=== PATIENT | female | born 1975 | race Caucasian/White ===

== ENCOUNTER 2022-08-31 17:06 | Emergency (ER) | payer OTHER, SELFPAY ==
[2022-08-31 17:09] VITALS: BP 133/70; PULSE 79; RESP 16; TEMP 37.1; O2SAT 98; BMI 27.4
[2022-08-31 17:43] LABS: Add Manual Diff / Slide Review NO; Basophils Absolute Auto 0 /uL (0-100); Basophils Percent Auto 0.3 % (0-2); Eosinophils Absolute Auto 200 /uL (0-450); Eosinophils Percent Auto 2.6 % (2-4); Hematocrit 41.2 % (36-46); Hemoglobin 13.8 g/dL (12.0-16.0); Lymphocytes Absolute Auto 1700 /uL (1100-4500); Lymphocytes Percent Auto 25.3 % (25-40); Mean Corpuscular HGB Conc 33.5 % (30-36); Mean Corpuscular Hemoglobin 29.2 PG (26-34); Mean Corpuscular Volume 87.2 fL (80-100); Monocytes Absolute Auto 500 /uL (0-900); Monocytes Percent Auto 7.9 % (3-14); Neutrophils Absolute Auto 4300 /uL (1500-7000); Neutrophils Percent Auto 63.9 % (50-75); Platelet Count 208 X10^3/uL (150-400); Red Blood Cell Count 4.73 X10^6/uL (4.0-5.2); Red Cell Distribution Width 13.2 % (11.6-14.8); White Blood Cell Count 6.7 X10^3/uL (4.5-11.0)
[2022-08-31 18:12] LABS: BUN Creatinine Ratio 17.1 (6-22); Blood Urea Nitrogen 7 mg/dL (7-17); Calcium 9.1 mg/dL (8.4-10.2); Carbon Dioxide 26 mmol/L (22-32); Chloride 101 mmol/L (98-107); Estimated Glomerular Filt Rate > 60 mL/min (>60); Glucose 100 mg/dL (70-100); HEMOLYSIS < 15 (0-50); Potassium 3.8 mmol/L (3.4-5.1); Sodium 139 mmol/L (137-145)
[2022-08-31 18:13] LABS: Alanine Aminotransferase 24 IU/L (<35); Albumin 4.3 g/dL (3.5-5.0); Albumin Globulin Ratio 1.1 (1.0-2.8); Alkaline Phosphatase 53 U/L (38-126); Aspartate Aminotransferase 29 IU/L (14-36); Bilirubin Total 0.8 mg/dL (0.2-1.3); Globulin 3.9 g/dL (1.7-4.1); Lipase 48 U/L (23-300); Total Protein 8.2 g/dL (6.3-8.2)
--- NOTE | 2022-08-31 18:34 | ED.GENADULT ---
HPI - General Adult General Chief complaint: Abdominal Pain Stated complaint: Lower ABD pain T-3 Time Seen by Provider: 08/31/22 18:10 Source: patient Mode of arrival: Ambulatory History of Present Illness HPI narrative: 46-year-old woman with no significant medical history, currently menopausal who past her navel fitness test last with quite a bit of exertion presents complaining of left lower quadrant abdominal pain that has been present for the last 3 days and getting worse. She also night's some mild right paraspinous muscle pain at approximately the T10-T12 level that predated the abdominal pain. She is concerned that the exertion 5 days ago may have caused her symptoms. She does not describe any diarrhea or vomiting. She notes that walking is making symptoms worse. She has not taken any medications for pain control as she is trying to actively avoid these. She does not notice any blood in her urine and has been having regular bowel movements without blood. Bowel movements do not seem to influence her pain. She has not had nausea or vomiting. Denies fevers,headaches or any vaginal discharge. Last menstrual cycle was in February Related Data Previous Rx's Medication Instructions Recorded amoxicillin 875 mg-potassium 1 tab PO BID #20 tabs 08/31/22 clavulanate 125 mg tablet Review of Systems Review of Systems Narrative: Pertinent positive and negative findings as per HPI Patient History Social History Smoking Status: Never smoker Smoking Status: Never smoker alcohol intake frequency: a few times a month Substance Use Type: does not use Exam Initial Vital Signs Initial Vital Signs: Vital Signs Temperature 98.8 F 08/31/22 17:09 Pulse Rate 79 08/31/22 17:09 Respiratory Rate 16 08/31/22 17:09 Blood Pressure 133/70 08/31/22 17:09 Pulse Oximetry 98 08/31/22 17:09 Oxygen Delivery Method Room Air 08/31/22 17:09 General: Healthy appearing, in no acute distress. Able to give a complete and coherent history. Well-nourished well-developed HEENT: Moist mucous membranes, normal sclera with reactive pupils, Neck: No JVD, supple Respiratory: Lungs are clear to auscultation, no wheezing no rales no rhonchi. Full and symmetrical air movement Cardiac: Regular rate and rhythm no murmurs no bruits Chest: Some mild paraspinous tenderness right side T10-T12 without significant pain does not seem to influence the left lower quadrant pain Abdomen: Soft, moderate tenderness in the left lower quadrant without rebound or guarding, good bowel tones, no flank pain. Skin: Warm and dry, no rashes Neurologic: Grossly neurologically intact with no obvious asymmetries or abnormalities Extremities: No trauma, well perfused Psych: Cooperative, appropriate insight and affect Course Orders Ordered: ED Orders 08/31/22 17:15 Complete Blood Count AUTO DIFF Stat Comprehensive Metabolic Panel Stat Lipase Stat 08/31/22 18:35 CT abdomen pelvis w con Stat Discontinued Medications Ondansetron HCl (Ondansetron 4 Mg/2 Ml Inj) 4 mg IV NOW PRN PRN Reason: Nausea And Vomiting Vital Signs Vital signs: Vital Signs - 8 hr 08/31/22 18:41 08/31/22 21:52 Pulse Rate 69 72 Respiratory Rate 16 16 Blood Pressure 133/76 129/78 Pulse Oximetry 99 99 Oxygen Delivery Method Room Air Room Air Medical Decision Making Lab Data 08/31/22 17:15 08/31/22 17:15 Labs: Lab Results 08/31/22 08/31/22 Range/Units 17:15 17:15 WBC 6.7 (4.5-11.0) X10^3/uL RBC 4.73 (4.0-5.2) X10^6/uL Hgb 13.8 (12.0-16.0) g/dL Hct 41.2 (36-46) % MCV 87.2 (80-100) fL MCH 29.2 (26-34) PG MCHC 33.5 (30-36) % RDW 13.2 (11.6-14.8) % Plt Count 208 (150-400) X10^3/uL Neut % (Auto) 63.9 (50-75) % Lymph % (Auto) 25.3 (25-40) % [place] % (Auto) 7.9 (3-14) % Eos % (Auto) 2.6 (2-4) % Baso % (Auto) 0.3 (0-2) % Neut # (Auto) 4300 (0286-9943) /uL Lymph # (Auto) 1700 (2403-2979) /uL [place] # (Auto) 500 (0-900) /uL Eos # (Auto) 200 (0-450) /uL Baso # (Auto) 0 (0-100) /uL Sodium 139 (137-145) mmol/L Potassium 3.8 (3.4-5.1) mmol/L Chloride 101 (98-107) mmol/L Carbon Dioxide 26 (22-32) mmol/L BUN 7 (7-17) mg/dL Creatinine 0.41 L (0.52-1.04) mg/dL Estimated GFR > 60 (>60) mL/min BUN/Creatinine Ratio 17.1 (6-22) Glucose 100 (70-100) mg/dL Calcium 9.1 (8.4-10.2) mg/dL Total Bilirubin 0.8 (0.2-1.3) mg/dL AST 29 (14-36) IU/L ALT 24 (<35) IU/L Alkaline Phosphatase 53 (38-126) U/L Total Protein 8.2 (6.3-8.2) g/dL Albumin 4.3 (3.5-5.0) g/dL Globulin 3.9 (1.7-4.1) g/dL Albumin/Globulin Ratio 1.1 (1.0-2.8) Lipase 48 (23-300) U/L Point of Care Testing Test Results Negative Urine Dip Bedside Urine Glucose Negative Bedside Urine Bilirubin - Negative Bedside Urine Ketone - Negative Urine Specific [place] 1.010 Bedside Urine Occult Blood - Negative Bedside Urine pH 7.5 Bedside Urine Protein - Negative Bedside Urine Urobilinogen - Negative Bedside Urine Nitrite - Negative Bedside Urine Leukocytes - Negative Esterase Point of care testing: Point of Care Testing Test Results Negative Urine Dip Bedside Urine Glucose Negative Bedside Urine Bilirubin - Negative Bedside Urine Ketone - Negative Urine Specific [place] 1.010 Bedside Urine Occult Blood - Negative Bedside Urine pH 7.5 Bedside Urine Protein - Negative Bedside Urine Urobilinogen - Negative Bedside Urine Nitrite - Negative Bedside Urine Leukocytes - Negative Esterase [facility] Narrative Medical decision making narrative: CC: Left lower quadrant pain Corroborating data: Data collected from: patient Differential considered: Constipation, diverticulitis, kidney stone, pyelonephritis, ovarian cyst, other pelvic pathology, ectopic Exam documented above, pertinent findings include: Tender left lower quadrant that seems lateral to ovaries and uterus. No skin changes Lab Test results independently reviewed as above. Pertinent findings: White blood cell count is unremarkable Chemistries are reassuring with normal electrolytes and no change to liver function studies Lipase is unremarkable Imaging studies independently reviewed: CT abdomen demonstrates uncomplicated diverticulitis without abscess Discussion: Patient is re-examined and well continuing to have a moderate amount of pain in the left lower quadrant certainly does not have a surgical abdomen. Reviewed findings of labs and CT. With shared decision-making we opted to not treat immediately with antibiotics. I did give her a prescription for Augmentin to begin should she feel that she is getting worse or develop a fever. We discussed the reasoning behind this recommendation including recommendations in 2021 to not treat early uncomplicated diverticulitis with antibiotics. She was quite amenable questions were answered and she is felt to be safe for discharge home Discharge Plan Departure Patient Disposition: Home Clinical Impression: Diverticulitis Instructions: DI for Diverticulitis Activity Restrictions/Additional Instructions: Thank you for coming in today Your blood work is reassuring and does not suggest overwhelming infection. Your CT scan shows uncomplicated sigmoid diverticulitis. This is inflammation in your colon right at the area where you were hurting. There was a large study done last year that showed with uncomplicated diverticulitis and otherwise healthy people that antibiotic treatment was not required. Because of this, I am going to suggest that we do not begin antibiotics tonight however, if you find that the pain is getting worse, you develop any type of fever or new symptoms then I do want you to start the Augmentin and complete the Augmentin prescription. It is okay to use Tylenol to help with pain control I would recommend routine screening colonoscopy, if you have not already done so, once your symptoms have improved If you find that you are getting worse or develop any new symptoms, please feel free to return to the emergency department for further evaluation. Prescriptions: New amoxicillin-pot clavulanate 875-125 mg tablet 1 tab PO BID Qty: 20 0RF Stand Alone Forms: Patient Portal/API
--- NOTE | 2022-08-31 18:35 | DI.CT.S_ITS ---
PROCEDURE: CT ABDOMEN PELVIS W CON INDICATIONS: LLQ pain TECHNIQUE: After the administration of intravenous contrast, axial sections acquired from the lung bases to the pubic symphysis. Coronal and sagittal reformats were performed. For radiation dose reduction, the following was used: automated exposure control, adjustment of mA and/or kV according to patient size. COMPARISON: None. FINDINGS: Image quality: Excellent. Lung bases: Unremarkable. Heart: No significant findings. ABDOMEN: Liver: Unremarkable. Gallbladder: Status post cholecystectomy. Biliary ducts: Unremarkable. Pancreas: Unremarkable. Spleen: Unremarkable. Adrenal Glands: Unremarkable. Kidneys and Ureters: Unremarkable. Stomach and Bowel: Inflammatory fat stranding and bowel wall thickening or seen surrounding a diverticulum in the proximal sigmoid colon at the left lower quadrant. No pneumoperitoneum. No focal fluid collection. No signs of bowel obstruction. Peritoneum: No abnormal intraperitoneal fluid. No free air. Ventral Wall: Tiny fat containing periumbilical. Abdominal Nodes: No retroperitoneal or mesenteric adenopathy by size criteria. Vessels: Aorta and inferior vena cava are normal in size. PELVIS: Pelvic Organs: Unremarkable. Bladder: Unremarkable. Pelvic Nodes: No enlarged lymph nodes. Miscellaneous: No hernias are seen. Bones: Mild sclerosis adjacent to the sacroiliac joints may be degenerative or related to prior sacroiliitis or osteitis ilii condensans. IMPRESSION: Acute uncomplicated sigmoid diverticulitis. Approved by: Jose Alejandro Schneider M.D. on 08/31/2022 at 19:30
[2022-08-31 18:41] VITALS: BP 133/76; PULSE 69; RESP 16; O2SAT 99
[2022-08-31 21:52] VITALS: BP 129/78; PULSE 72; RESP 16; O2SAT 99
== END 2022-08-31 21:53 | disposition home or self-care (01) ==
PROVIDERS: Emergency Medicine; Emergency Provider Emergency Medicine
DX: K57.92 Diverticulitis of intestine, part unspecified, without perforation or abscess without bleeding (principal)
CPT/HCPCS: 36415; 74177; 80053; 81003; 81025; 83690; 85025; 99284; Q9967

== ENCOUNTER 2022-11-08 12:01 | Emergency (ER) | payer OTHER, SELFPAY ==
[2022-11-08 12:04] VITALS: BP 156/87; PULSE 74; RESP 16; TEMP 36.8; O2SAT 97; BMI 26.5
--- NOTE | 2022-11-08 12:51 | ED.DENTAL ---
HPI - Dental/Oral <Bubba Knight PA-C - Last Filed: 11/08/22 13:26> General Chief complaint: Dental/Oral Stated complaint: lt head hurts/dry mouth/lymph node swollen/tooth Time Seen by Provider: 11/08/22 12:26 Source: patient Mode of arrival: Ambulatory History of Present Illness HPI Narrative: 47-year-old female presents to the ED with right-sided dental pain, left-sided headache. Patient states that she experienced some right-sided dental pain on the lower side a few days ago, saw her dentist that did a crown on her tooth, he did a CT and suggested to her that she might have an infection in 1 of the right upper teeth, that she needs to follow-up with the dentist that did a tooth implant on the right upper side. Patient states that since then, her dental pain has subsided, however she has developed a left-sided headache. Patient also endorses that she had a mild cold 2 weeks ago, following which she is had some congestion. Patient denies fever, chills, chest pain, shortness of breath, trouble swallowing, trouble breathing, nausea, vomiting. Related Data Previous Rx's Medication Instructions Recorded amoxicillin 875 mg-potassium 1 tab PO BID #20 tabs 08/31/22 clavulanate 125 mg tablet amoxicillin 875 mg-potassium 1 tab PO BID 10 days #20 tabs 11/08/22 clavulanate 125 mg tablet Allergies Allergy/AdvReac Type Severity Reaction Status Date / Time No Known Drug Allergies Allergy Verified 11/08/22 12:08 Review of Systems <Bubba Knight PA-C - Last Filed: 11/08/22 13:26> Review of Systems ROS Unobtainable: All systems reviewed & are unremarkable except as noted in HPI and below Constitutional Constitutional: Denies chills, Denies fatigue, Denies fever(s), Denies frequent falls, Reports headache(s), Denies lethargy and Denies weakness Eyes Eyes: Denies change in vision, Denies eye discharge, Denies irritation and Denies loss of vision ENT Ears, Nose, Mouth, and Throat: Denies change in voice, Reports dental pain, Denies dizziness, Reports headache(s), Denies neck pain, Denies sore throat and Denies throat swelling Cardiovascular Cardiovascular: Denies chest pain, Denies irregular heart rhythm, Denies lightheadedness, Denies palpitations, Denies dyspnea, Denies dyspnea on exertion and Denies orthopnea Respiratory Respiratory: Denies cough, Denies dyspnea, Denies dyspnea on exertion and Denies wheezing Gastrointestinal Gastrointestinal: Denies abdominal pain, Denies change in bowel habits, Denies diarrhea, Denies nausea and Denies vomiting Genitourinary Genitourinary: Denies hematuria, Denies flank pain, Denies urinary incontinence and Denies urinary urgency Musculoskeletal Musculoskeletal: Denies back pain, Denies muscle weakness, Denies neck pain, Denies numbness and Denies tingling Integumentary/Breasts Skin/Breast: Denies pruritus, Denies erythema, Denies rash and Denies wounds Neurologic Neurologic: Denies behavioral changes, Denies confusion, Denies dizziness, Denies frequent falls, Reports headache(s), Denies loss of vision, Denies numbness, Denies tingling and Denies weakness Psychiatric Psychiatric: Denies anxiety, Denies behavioral changes, Denies confusion, Denies depression, Denies homicidal ideation and Denies suicidal ideation Endocrine Endocrine: Denies fatigue, Denies flushing and Denies palpitations Hematologic/Lymphatic Hematologic/Lymphatic: Denies easy bruising Allergic/Immunologic Allergic/Immunologic: Denies urticaria, Denies throat swelling and Denies wheezing Patient History <Bubba Knight PA-C - Last Filed: 11/08/22 13:26> Social History Smoking Status: Never smoker Smoking Status: Never smoker alcohol intake frequency: a few times a month Substance Use Type: does not use Exam <Bubba Knight PA-C - Last Filed: 11/08/22 13:26> Narrative Exam Narrative: Const General:?cooperative, healthy appearing and comfortable [facility] Head:?normal to inspection Ears:?hearing grossly normal bilaterally Nose:?external nose normal Face and sinus:?normal facial exam and sinuses nontender Mouth:?oral mucosae normal; multiple dental implants, fillings, crown. No tenderness to palpation. No swelling, no discharge Throat:?posterior oropharynx normal; airways patent Eyes General:?appearance normal, both eyes and all related structures Neck Neck:?normal visual inspection. There is right-sided anterior lymphadenopathy Resp Effort & Inspection:?normal respiratory effort Auscultation:?clear to auscultation bilaterally Cardio Rate:?regular rate Rhythm:?regular rhythm Neuro General:?patient alert, patient awake and patient oriented x3 Initial Vital Signs Initial Vital Signs: Vital Signs Temperature 98.2 F 11/08/22 12:04 Pulse Rate 74 11/08/22 12:04 Respiratory Rate 16 11/08/22 12:04 Blood Pressure 156/87 H 11/08/22 12:04 Pulse Oximetry 97 11/08/22 12:04 Oxygen Delivery Method Room Air 11/08/22 12:04 <Rosanna Shea DO - Last Filed: 11/09/22 07:24> Initial Vital Signs Initial Vital Signs: Vital Signs Temperature 98.2 F 11/08/22 12:04 Pulse Rate 74 11/08/22 12:04 Respiratory Rate 16 11/08/22 12:04 Blood Pressure 156/87 H 11/08/22 12:04 Pulse Oximetry 97 11/08/22 12:04 Oxygen Delivery Method Room Air 11/08/22 12:04 Course <JOANNE Pak Last Filed: 11/08/22 13:26> Vital Signs Vital signs: Vital Signs - 8 hr 11/08/22 12:04 11/08/22 12:55 Temperature 98.2 F Pulse Rate 74 65 Respiratory Rate 16 18 Blood Pressure 156/87 H 129/62 Pulse Oximetry 97 99 Oxygen Delivery Method Room Air Room Air <Rosanna Shea DO - Last Filed: 11/09/22 07:24> Vital Signs Vital signs: Vital Signs - 8 hr 11/08/22 12:04 11/08/22 12:55 Temperature 98.2 F Pulse Rate 74 65 Respiratory Rate 16 18 Blood Pressure 156/87 H 129/62 Pulse Oximetry 97 99 Oxygen Delivery Method Room Air Room Air MDM - Dental/Oral <JOANNE Pak Last Filed: 11/08/22 13:26> MDM Narrative Medical decision making narrative: 47-year-old female presents to the ED with right-sided dental pain, left-sided headache. Patient has multiple dental implants on the right upper side, no tenderness to palpation, no discharge or swelling. It is possible that patient has a dental infection based on what the dentist explained to the patient. Will treat with antibiotics. Patient's headache likely due to eustachian tube dysfunction, nasal congestion. Recommend Flonase, Tylenol, ibuprofen. ED return precautions were discussed with patient. Patient verbalized understanding. Medical records reviewed: Yes Discharge Plan Departure Patient Disposition: Home Clinical Impression: Toothache, Headache Instructions: DI for Dental Pain Activity Restrictions/Additional Instructions: Were evaluated in the ED today for dental pain and headache. Your headache is likely due to some sinus congestion from the cold you had several days ago. It is possible that you have a dental infection for which you are being prescribed antibiotics. Please take those as prescribed. You may also take Flonase which is [id number] for the headache and head heaviness. Please follow-up with the dentist that is doing your dental implants as soon as possible. Return to the ED if your symptoms worsen, you experience fever, chills, trouble breathing, trouble swallowing. Prescriptions: New amoxicillin-pot clavulanate 875-125 mg tablet 1 tab PO BID 10 Days Qty: 20 0RF No Action amoxicillin-pot clavulanate 875-125 mg tablet 1 tab PO BID Qty: 20 0RF Stand Alone Forms: Patient Portal/API <Rosanna Shea DO - Last Filed: 11/09/22 07:24> Cosign ED Attending Jamilature Attestation: I was immediately available in the department for consultation. Documentation has been reviewed.
[2022-11-08 12:55] VITALS: BP 129/62; PULSE 65; RESP 18; O2SAT 99
== END 2022-11-08 13:14 | disposition home or self-care (01) ==
PROVIDERS: Emergency Provider Student in an Organized Health Care Education/Training Program
DX: R51.9 Headache, unspecified (principal); K08.89 Other specified disorders of teeth and supporting structures
CPT/HCPCS: 99281

== ENCOUNTER → 2024-08-11 18:44 | Outpatient (CLI) | payer OTHER, SELFPAY | PROVIDERS: Visit Provider Nurse Practitioner Family | DX: L02.412 Cutaneous abscess of left axilla (principal) | CPT/HCPCS: 87070; 87075; 87077; 87147; 87186; 87205 ==

== ENCOUNTER → 2024-09-12 09:32 | Outpatient (CLI) | payer OTHER, SELFPAY ==
--- NOTE | 2024-09-12 09:34 | DI.MG.S_ITS ---
MM diagnostic mammo unilat LT, US breast LT limited: 09/12/2024 BI-RADS: 2 CLINICAL: 48-year old female for left diagnostic mammogram and left diagnostic breast ultrasound. Tyrer-Cuzick lifetime risk of 11.4%. No personal or first-degree family history of breast cancer. The patient reports an infection or inflammation (1 month) in the left breast. Patient says she went to the doctor where they did a procedure and drained milky colored fluid. Patient also took antibiotics and reports that the infection has since resolved. PRIOR EXAMS 03/29/2024, 03/29/23, . [facility]. MAMMOGRAPHY TECHNIQUE: 2D and 3D (tomosynthesis) digital mammographic views obtained, with additional images as needed for full coverage. Current study was also evaluated with a Computer Aided Detection (CAD) system. ULTRASOUND TECHNIQUE Real-time goddard scale and color doppler imaging of the area of clinical interest was performed with image documentation. TARGETED Left Breast Ultrasound: Real-time ultrasound exam was performed focused to area of clinical and/or imaging concern. DENSITY Left: C. The breasts are heterogeneously dense, which may obscure small masses. MAMMOGRAPHY FINDINGS Left (finding-1): MLO only, Axillary Tail, measuring 1.1 cm: Correlating with patient concern there is an asymmetry seen only on one view. The asymmetry in the left breast is compatible with mild superficial fat stranding which may be related to the patient's resolved infection versus post-procedure change from reported incision and drainage. ULTRASOUND FINDINGS Left (finding-1): Upper Outer at 1:30, 18 cm from nipple, Skin Depth, measuring 1.2 x 0.3 x 1.1 cm: Correlating with findings on mammogram there is a skin lesion present. Doppler shows no vascularity. This could represent remnants of a sebaceous cyst and/or post-procedure change from the patient's reported incision and drainage. There is no drainable fluid collection or abscess. IMPRESSION: Left * No evidence of malignancy with benign findings. RECOMMENDATIONS Left * Clinical follow-up is recommended, and further management of palpable abnormalities or other focal signs or symptoms should be based on the results of clinical evaluation. If palpable abnormality or other concerning symptom persists or progresses, further clinical evaluation should be considered. Bilateral * Annual screening mammography. COMMENTS: Findings and recommendations were conveyed to the patient during today's evaluation. OVERALL ASSESSMENT CATEGORY BI-RADS-2: Benign. [employer] recommends annual screening mammography beginning at age 40 for women with average risk of breast cancer. ELECTRONICALLY SIGNED: Fiorella Sandoval M.D. on 09/12/2024 at 11:37:00 AM PT Interpreting Station ID: [id number]
== END ==
LOC: MAMMO 09:33
PROVIDERS: PCP Preventive Medicine Aerospace Medicine; Referring Provider Preventive Medicine Aerospace Medicine; Visit Provider Preventive Medicine Aerospace Medicine
DX: L02.91 Cutaneous abscess, unspecified (principal); R92.332 Mammographic heterogeneous density, left breast
CPT/HCPCS: 76642; 77065; G0279